=== PATIENT | female | born 1985 | race Asian ===

== ENCOUNTER 2023-08-09 12:05 | Emergency (ER) | payer OTHER ==
[~2023-08-09] VITALS: Ht 160 cm; Wt 77.1 kg
[2023-08-09 14:03] VITALS: BP 126/85; TEMP 98.2; O2SAT 100
== END 2023-08-09 14:03 | disposition home or self-care (01) ==
LOC: ER 12:12
DX: R60.0 Localized edema (principal)
CPT/HCPCS: 93970-TC